=== PATIENT | female | born 1950 | race Caucasian/White ===

== ENCOUNTER 2017-07-14 14:13 | Emergency (ER) | payer MEDICARE ==
--- NOTE | 2017-07-14 15:26 | XRAY Report ---
EXAM: CHEST RADIOGRAPHY EXAM DATE: 07/14/2017 03:07 PM. CLINICAL HISTORY: Productive cough for 3 weeks. Fever. Shortness of breath. COMPARISON: None. TECHNIQUE: 2 views. FINDINGS: Lungs/Pleura: No focal opacities evident. No pleural effusion. No pneumothorax. Normal volumes. Mediastinum: Large heart. Other: No compression fractures. IMPRESSION: 1. Clear lungs. 2. Large heart. [facility] Referring Provider Line: [phone] SITE ID: [id number]
--- NOTE | 2017-07-14 15:44 | ED Physician Documentation ---
PD HPI URI - Stated complaint Stated Complaint: COUGH/FEVER - Chief complaint Chief Complaint: Resp - History obtained from History obtained from: Patient - History of Present Illness Timing - onset: How many weeks ago (3) Timing duration: Weeks (has had cough and URI symptoms for 3 weeks, with worsening of cough, sputum production and now fevers the past 2 days.) Timing details: Gradual onset Associated symptoms: Fever, Productive cough. No: Nasal congestion, Sore throat , Hemoptysis Contributing factors: COPD / asthma. No: Sick contact, Travel, Immunocompromised Improves by: MDI/nebulizer (her albuterol inhaler) Worsened by: Activity Recently seen: Not recently seen Review of Systems Constitutional: reports: Fever (couple of days), Chills Nose: reports: Congestion. denies: Rhinorrhea / runny nose Throat: denies: Sore throat Cardiac: reports: Chest pain / pressure (anteriorly with coughing) Respiratory: reports: Dyspnea, Cough, Wheezing GI: denies: Nausea, Vomiting, Diarrhea Skin: denies: Rash PD PAST MEDICAL HISTORY - Past Medical History Cardiovascular: None Respiratory: Asthma - Present Medications Home Medications: Ambulatory Orders Medication Instructions Recorded Confirmed Albuterol Sulf [Ventolin Hfa 1 - 2 puffs INH Q4HR PRN #1 inhaler 07/14/17 Inhaler] Benzonatate [Tessalon] 100 mg PO TID PRN #25 capsule 07/14/17 Dexamethasone [Decadron] 4 mg PO DAILY #5 tablet 07/14/17 Doxycycline Monohydrate 100 mg PO BID #14 tablet 07/14/17 guaiFENesin/CODEINE [Robitussin AC] 10 ml PO Q6H PRN #240 ml 07/14/17 - Allergies Allergies/Adverse Reactions: Allergies Allergy/AdvReac Type Severity Reaction Status Date / Time Sulfa (Sulfonamide Allergy Hives Verified 07/14/17 14:57 Antibiotics) PD ED PE NORMAL - Vitals Vital signs reviewed: Yes - General General: Alert and oriented X 3, No acute distress, Well developed/nourished - HEENT HEENT: Pharynx benign - Neck Neck: Supple, no meningeal sign, No adenopathy - Cardiac Cardiac: RRR, No murmur - Respiratory Respiratory: No: Clear bilaterally (general scattered wheezes. No coarse sounds. ) - Extremities Extremities: No tenderness to palpate, Normal ROM s pain, No edema, No calf tenderness / cord Results - Vitals Vitals: Oxygen O2 Source Room air - Rads (name of study) chest Radiology: Prelim report reviewed (no infiltrates) PD MEDICAL DECISION MAKING - ED course Complexity details: considered differential (URI symptoms with prolonged cough, will treat with abx as well given underlying lung disease. ), d/w patient Departure - Departure Disposition: 01 Home, Self Care Clinical Impression: Bronchitis Dyspnea Qualifiers: Dyspnea type: dyspnea on exertion Qualified Code(s): R06.09 - Other forms of dyspnea Asthma Qualifiers: Asthma severity: mild Asthma persistence: intermittent Asthma complication type : with acute exacerbation Qualified Code(s): J45.21 - Mild intermittent asthma with (acute) exacerbation Condition: Stable Record reviewed to determine appropriate education?: Yes Instructions: ED Upper Resp Infec Abx Tx Prescriptions: Albuterol Sulf [Ventolin Hfa Inhaler] 1 - 2 puffs INH Q4HR PRN #1 inhaler PRN Reason: Shortness Of Air/Wheezing Benzonatate [Tessalon] 100 mg PO TID PRN #25 capsule PRN Reason: Cough Dexamethasone [Decadron] 4 mg PO DAILY #5 tablet Doxycycline Monohydrate 100 mg PO BID #14 tablet guaiFENesin/CODEINE [Robitussin AC] 10 ml PO Q6H PRN #240 ml PRN Reason: Cough Comments: Use the albuterol inhaler 2 puffs 4 times a day and extra times as needed. Dexamethasone steroid daily for 5 more days. Doxycycline antibiotic because of your chronic bronchitis, the current illness is likely to be viral but there can be concurrent bacterial elsa seen as well. For the cough use Tessalon Perls and codeine cough medicine as needed. Recheck if not improving over the next few days. Her cough will likely continue for 2-3 weeks after that. Discharge Date/Time: 07/14/17 17:01
[2017-07-14] MEDS ORDERED: ALBUTEROL NEB 2.5 MG/3 ML INH STA (16:15)
[2017-07-14] MEDS ORDERED: DOXYCYCLINE 100 MG TABLET PO STA (16:15)
[2017-07-14] MEDS ORDERED: DEXAMETHASONE 10 MG/ML VIAL PO STA (16:15)
[2017-07-14] MEDS ORDERED: guaiFENesin/CODEINE 5 ML UDC PO STA (16:15)
[2017-07-14 17:02] VITALS: BP 152/62
== END 2017-07-14 17:01 | disposition home or self-care (01) ==
LOC: ED 14:13
DX: J40 Bronchitis, not specified as acute or chronic (principal); J45.21 Mild intermittent asthma with (acute) exacerbation
CPT/HCPCS: 71046; 99283; A9270; J7613